=== PATIENT | female | born 1945 | race Caucasian/White ===

== ENCOUNTER → 2019-04-19 | Outpatient (CLI) | payer MEDICARE, BC ==
--- NOTE | 2019-04-19 12:54 | US ---
EXAMINATION TYPE: US carotid duplex BILAT DATE OF EXAM: 04/19/2019 COMPARISON: NONE CLINICAL HISTORY: I65.23 Occlusion and stenosis of bilateral carotid. EXAM MEASUREMENTS: RIGHT: Peak Systolic Velocity (PSV) cm/sec ----- Right CCA: 52.4 ----- Right ICA: 71.9 ----- Right ECA: 51.9 ICA/CCA ratio: 1.4 RIGHT: End Diastole cm/sec ----- Right CCA: 14.7 ----- Right ICA: 23.3 ----- Right ECA: 6.6 LEFT: Peak Systolic Velocity (PSV) cm/sec ----- Left CCA: 57.2 ----- Left ICA: 57.4 ----- Left ECA: 54.0 ICA/CCA ratio: 1.0 LEFT: End Diastole cm/sec ----- Left CCA: 15.4 ----- Left ICA: 22.1 ----- Left ECA: 7.2 VERTEBRALS (direction of flow): Right Vertebral: Antegrade Left Vertebral: Antegrade Rhythm: Normal No significant velocity elevations, mild plaque. IMPRESSION: Mild degree of grayscale atheromatous plaquing with no sonographically evident hemodynam ically significant stenosis within either visualized carotid arterial system. Criteria for Assigning % of Stenosis / Diameter reduction (Estimation based on the indirect measurements of the internal carotid artery velocities (ICA PSV). 1. Normal (no stenosis)=ICA PSV < 125 cm/s: ratio < 2.0: ICA EDV<40 cm/s. 2. Less than 50% stenosis=ICA PSV < 125 cm/s: ratio < 2.0: ICA EDV<40 cm/s. 3. 50 to 69% stenosis=ICA PSV of 125 to 230 cm/s: ration 2.0 ? 4.0: ICA EDV 40-100 cm/s. 4. Greater than 70% stenosis to near occlusion= ICA PSV > 230 cm/s: ratio > 4.0: ICA EDV > 100 cm/s. 5. Near occlusion= ICA PSV velocities may be low or undetectable: variable ratio and ICA EDV. 6. Total occlusion=unable to detect flow.
== END | disposition home or self-care (01) ==
LOC: RADUSWWP 12:08
PROVIDERS: ATTEND Family Medicine
DX: I65.23 Occlusion and stenosis of bilateral carotid arteries (principal)
CPT/HCPCS: 93880

== ENCOUNTER → 2019-06-11 | Outpatient (CLI) | payer MEDICARE, BC ==
--- NOTE | 2019-06-11 16:19 | US ---
EXAMINATION TYPE: US pelvic complete DATE OF EXAM: 06/11/2019 COMPARISON: NONE CLINICAL HISTORY: 73-year-old female R10.2 pelvic pain. Pain on physical exam only. No complaints of bleeding. TECHNIQUE: Transabdominal (TA). Transabdominal sonographic images of the pelvis were acquired. Date of LMP: Post menopausal FINDINGS: EXAM MEASUREMENTS: Uterus: 8.8 x 4.5 x 2.7 cm Endometrial Stripe: 1.3 cm Right Ovary: Not visualized Left Ovary: Not visualized 1. Uterus: Anteverted and wnl 2. Endometrium: Thickened 3. Right Ovary: Not seen 4. Left Ovary: Not seen 5. Bilateral Adnexa: wnl 6. Posterior cul-de-sac: wnl IMPRESSION: Endometrial stripe abnormally thickened at 1.3 cm for a postmenopausal female. Careful clinical corre lation for any postmenopausal bleeding is recommended. Differential considerations include endometria l hyperplasia, polyps, or endometrial carcinoma. Neither ovary could be visualized.
== END | disposition home or self-care (01) ==
LOC: RADUSWWP 14:37
PROVIDERS: ATTEND Obstetrics & Gynecology
DX: R93.89 Abnormal findings on diagnostic imaging of other specified body structures (principal); Z78.0 Asymptomatic menopausal state
CPT/HCPCS: 76856

== ENCOUNTER → 2019-07-05 | Outpatient (CLI) | payer MEDICARE, BC ==
[2019-07-05 11:39] LABS: Basophils # (A) 0.1 k/uL (0-0.2); Basophils % (A) 1 %; Eosinophils # (A) 0.1 k/uL (0-0.7); Eosinophils % (A) 2 %; HCT 43.1 % (34.0-46.0); HGB 14.4 gm/dL (11.4-16.0); Lymphocytes # (A) 1.7 k/uL (1.0-4.8); Lymphocytes % (A) 27 %; MCH 29.4 pg (25.0-35.0); MCHC 33.3 g/dL (31.0-37.0); MCV 88.2 fL (80.0-100.0); Mean Platelet Volume 5.6; Monocytes # (A) 0.4 k/uL (0-1.0); Monocytes % (A) 7 %; Neutrophils # (A) 3.8 k/uL (1.3-7.7); Neutrophils % (A) 62 %; Platelet Count 255 k/uL (150-450); RBC 4.89 m/uL (3.80-5.40); RDW 13.9 % (11.5-15.5); WBC 6.1 k/uL (3.8-10.6)
== END | disposition home or self-care (01) ==
LOC: LABPAT 10:19
PROVIDERS: ATTEND Obstetrics & Gynecology
DX: Z01.812 Encounter for preprocedural laboratory examination (principal); Z01.818 Encounter for other preprocedural examination
CPT/HCPCS: 36415; 85025; 93005

== ENCOUNTER 2019-07-12 06:26 | Day surgery (SDC) | payer MEDICARE, BC ==
[2019-07-09 10:10] VITALS: BMI 34.9
--- NOTE | 2019-07-11 20:28 | P.HPOB ---
History of Present Illness H&P Date: 07/11/19 Chief Complaint: Thickened endometrium This is a 73-year-old female 1 para 0 who presents for dilation and curettage secondary to endometrial thickening on ultrasound. Her pelvic ultrasound showed a uterus measuring 8.8 by or 0.5 x 2.7 cm with endometrial thickness of 1.3 cm. Neither ovary was seen. Her pelvic ultrasound was performed due to her history of breast cancer. She denied any vaginal bleeding. She only had pelvic pain when she was examined. In light of the thickened endometrium, the decision is made to proceed with dilation and curettage with hysteroscopy for direct visualization. Obstetrical history: . History of 1 ectopic . Gynecologic history: No history of sexual transmitted diseases. Social history: She is . She is retired. Review of Systems Constitutional: Reports weight loss, Denies chills, Denies fever Eyes: denies blurred vision, denies pain Ears: bilateral: decreased hearing Ears, nose, mouth and throat: Denies headache, Denies sore throat Cardiovascular: Denies chest pain, Denies shortness of breath Respiratory: Denies cough Gastrointestinal: Reports constipation Genitourinary: Reports urinary frequency, Denies abnormal vaginal bleeding, Denies dysuria, Denies hematuria Menstruation: Reports postmenopausal Musculoskeletal: Reports myalgias Neurological: Reports headaches Endocrine: Denies fatigue, Denies weight change Past Medical History Past Medical History: Cancer, Hearing Disorder / Deafness, Hyperlipidemia, Osteoarthritis (OA), Pneumonia Additional Past Medical History / Comment(s): lt breast ca-chemo 2000, varicose veins, environmental alleriges, constipation, tendonitis rt foot, glaucoma History of Any Multi-Drug Resistant Organisms: None Reported Past Surgical History: Breast Surgery, Joint Replacement, Orthopedic Surgery Additional Past Surgical History / Comment(s): colonoscopy, arabella mastectomy, left knee replacement,ectopic preg-fallopian tube remove,pin lt foot for maldonado fx, lt achilles tendon repaired, surgery on left knee after injury 1969's , arabella cataracts Past Anesthesia/Blood Transfusion Reactions: Previous Problems w/ Anesthesia, Motion Sickness, Postoperative Nausea & Vomiting (PONV) Additional Past Anesthesia/Blood Transfusion Reaction / Comment(s): heart rate went down during mastectomy surgery. no IV's or BP in left arm Past Psychological History: No Psychological Hx Reported Smoking Status: Former smoker Past Alcohol Use History: Occasional Past Drug Use History: None Reported - Past Family History Mother Additional Family Medical History / Comment(s): Alheimer's Father Additional Family Medical History / Comment(s): lung problems,alcoholism Sister(s) Family Medical History: Diabetes Mellitus, Hypertension Brother(s) Family Medical History: Cancer, Hypertension Additional Family Medical History / Comment(s): prostate ca,kidney ca,lung ca,colon ca Medications and Allergies Home Medications Medication Instructions Recorded Confirmed Type Atorvastatin Calcium [Lipitor] 20 mg PO HS 11/27/15 07/09/19 History Acetaminophen Tab [Tylenol Tab] 325 mg PO DIRECTED PRN 07/09/19 07/09/19 History Cannabidiol (Cbd) Extract 0 mg PO DIRECTED PRN 07/09/19 07/09/19 History [Epidiolex] Famotidine [Pepcid] 20 mg PO DAILY PRN 07/09/19 07/09/19 History Ibuprofen [Advil] 200 mg PO Q8HR PRN 07/09/19 07/09/19 History Travoprost [Travatan Z 0.004%] 1 drop BOTH EYES 199907/09/19 07/09/19 History Allergies Allergy/AdvReac Type Severity Reaction Status Date / Time erythromycin base Allergy Abdominal Verified 07/09/19 09:53 Pain Iodinated Contrast Media Allergy "had Verified 07/09/19 09:53 [Iodinated Contrast Media - biting IV Dye] feeling at the back of my neck" Iodine and Iodide Containing Allergy "had Verified 07/09/19 09:53 Produc biting feeling at the back of my neck" perfume Allergy Dyspnea Verified 07/09/19 09:53 candles Allergy Dyspnea Uncoded 07/09/19 09:53 Exam Osteopathic Statement: *. No significant issues noted on an osteopathic structural exam other than those noted in the History and Physical/Consult. HEENT: Within normal limits Heart: Regular rate and rhythm Lungs: Clear to auscultation bilaterally Abdomen: Soft, nontender Pelvic exam: Uterus is retroverted, mildly tender, with first-degree prolapse. There is also first-degree cystocele noted. Bilateral adnexa are tender. No adnexal masses are palpated. Extremities: Negative Homans Assessment and Plan (1) Endometrial thickening on ultrasound Status: Acute Code(s): R93.89 - ABNORMAL FINDINGS ON DX IMAGING OF OTH BODY STRUCTURES SNOMED Code(s): 903065708 Plan: Proceed with dilation and curettage with hysteroscopy. I have discussed the risks, benefits, and alternative therapies for the above- mentioned procedure and for both sedation/anesthesia as well as necessary blood products administration, if indicated, as they pertain to this patient. The patient has indicated her understanding and acceptance of the risks and procedures discussed.
[~2019-07-12 06:26] MED LIST: DEXAMETHASONE SOD PHOSPHATE 10 MG/ML 1 ML VIAL IV ONE; HYDROmorphone 0.5 MG/0.5 ML SYRINGE IVP PRN; LACTATED RINGERS 1,000 ML IV SCH; LIDOCAINE 1% 20 ML VIAL (10MG/ML) FOR IV START INTRADERMA PRN; ONDANSETRON 4 MG/2 ML VIAL IVP ONE; Pre Op ABX Message 1 EACH MISC MISCELLANE ONE
[2019-07-12] MEDS ORDERED: diphenhydrAMINE 50 MG/ML 1 ML VIAL ONE (07:26)
[2019-07-12] MEDS ORDERED: PROPOFOL 10 MG/ML 20 ML VIAL IV ONE (07:26)
[2019-07-12] MEDS ORDERED: LIDOCAINE 1% INJ 10MG/ML (20 ML MDV) ONE (07:26)
[2019-07-12] MEDS ORDERED: SUCCINYLCHOLINE CHLORIDE 100 MG/5 ML SYR IV ONE (07:26)
[2019-07-12] MEDS ORDERED: fentaNYL (PF) 50 MCG/ML 2 ML AMP ONE (07:26)
--- NOTE | 2019-07-12 07:57 | P.OP ---
Date of Procedure: 07/12/19 Preoperative Diagnosis: Endometrial thickening Postoperative Diagnosis: Endometrial polyp Procedure(s) Performed: Dilation and curettage with hysteroscopy Anesthesia: MICA Surgeon: Samantha Domínguez Estimated Blood Loss (ml): 5 Pathology: other (Endometrial curettings) Condition: stable Disposition: same day Indications for Procedure: This is a 73-year-old female 1 para 0 who presents for dilation and curettage secondary to endometrial thickening on ultrasound. Her pelvic ultrasound showed a uterus measuring 8.8 by or 0.5 x 2.7 cm with endometrial thickness of 1.3 cm. Neither ovary was seen. Her pelvic ultrasound was performed due to her history of breast cancer. She denied any vaginal bleeding. She only had pelvic pain when she was examined. In light of the thickened endometrium, the decision is made to proceed with dilation and curettage with hysteroscopy for direct visualization. Operative Findings: Upon hysteroscopy a large endometrial polyp is noted. Background endometrium is very atrophic. Uterus is sounded to 9 cm. There is grade 3 uterine prolapse noted. Description of Procedure: The patient is taken to the operating room where she is placed in the dorsal lithotomy position. She is prepped and draped in the normal sterile fashion. Her bladder is drained with a catheter and then removed. Examination is performed under anesthesia. Uterus is found to be prolapsed grade 3. Uterus is small, mid position with no adnexal masses palpated. A weighted speculum was placed in the patient's vagina and a right angle retractor was used to visualize the cervix. The anterior lip of the cervix is grasped with a single-tooth tenaculum. The cervix is gently dilated with a Salu dilator and then the uterus is sounded to 9 cm. Cervix gently dilated further until a hysteroscope could be passed. Hysteroscopy is performed using normal saline. The above noted findings are made and pictures are taken. Next the hysteroscope was withdrawn and a polyp forceps was introduced. A very large polyp is removed that was about 2 inches long and about a half an inch wide. Next a medium-size sharp curet was introduced and sharp curettage was performed until a gritty texture was noted. Minimal further tissue was obtained. The specimen was removed from the field. The single-tooth tenaculum was removed and no bleeding was noted. All other incisions are removed from the vagina. Minimal bleeding is noted. Specimen is sent to pathology labeled endometrial curettings. Patient is taken to recovery room in stable condition.
[2019-07-12 08:12] VITALS: TEMP 96.8
[2019-07-12 09:10] VITALS: RESP 16
[2019-07-12 09:15] VITALS: PULSE 69
[2019-07-12 09:27] VITALS: BP 149/87
== END 2019-07-12 09:54 | disposition home or self-care (01) ==
LOC: OR 06:26
PROVIDERS: ATTEND Obstetrics & Gynecology
DX: N84.0 Polyp of corpus uteri (principal); N81.3 Complete uterovaginal prolapse; J45.909 Unspecified asthma, uncomplicated; K21.9 Gastro-esophageal reflux disease without esophagitis; E78.5 Hyperlipidemia, unspecified; H91.90 Unspecified hearing loss, unspecified ear; M19.90 Unspecified osteoarthritis, unspecified site; I83.90 Asymptomatic varicose veins of unspecified lower extremity; Z88.1 Allergy status to other antibiotic agents; Z88.5 Allergy status to narcotic agent; Z91.041 Radiographic dye allergy status; Z87.891 Personal history of nicotine dependence; Z79.899 Other long term (current) drug therapy; Z90.13 Acquired absence of bilateral breasts and nipples; Z85.3 Personal history of malignant neoplasm of breast; Z87.01 Personal history of pneumonia (recurrent); Z92.21 Personal history of antineoplastic chemotherapy; Z96.652 Presence of left artificial knee joint; Z98.41 Cataract extraction status, right eye; Z98.42 Cataract extraction status, left eye; Z90.79 Acquired absence of other genital organ(s); Z91.09 Other allergy status, other than to drugs and biological substances; Z83.3 Family history of diabetes mellitus; Z82.49 Family history of ischemic heart disease and other diseases of the circulatory system; Z80.0 Family history of malignant neoplasm of digestive organs; Z80.2 Family history of malignant neoplasm of other respiratory and intrathoracic organs; Z80.51 Family history of malignant neoplasm of kidney; Z80.42 Family history of malignant neoplasm of prostate; Z81.1 Family history of alcohol abuse and dependence; Z81.8 Family history of other mental and behavioral disorders
CPT/HCPCS: 88305; 58558; J1200; J1100; J2405; J2001; J3010; J0330; J2704

== ENCOUNTER → 2021-04-30 | Outpatient (CLI) | payer MEDICARE, BC ==
--- NOTE | 2021-05-01 07:28 | MR ---
EXAMINATION TYPE: MR lumbar spine wo con DATE OF EXAM: 04/30/2021 COMPARISON: NONE HISTORY: LBP, radiates down right leg x 2 weeks, no trauma. Radiculopathy per order. TECHNIQUE: Multiplanar, multisequence imaging of the lumbar spine is performed without IV contrast. FINDINGS: There is slight levoconvex scoliotic curvature centered at L2-L3 level. Sagittal images of the lumbar spine show vertebral body heights to appear satisfactory. Multilevel disc desiccation is p resent . The disc Space heights fairly well maintained. The conus medullaris is normal in position an d signal ending superior L1 level. A few tiny Tarlov cyst at S2 level noted for reference sagittal im age 11. Small hemangioma at T11 vertebral body level. Mild multilevel anterior spurring. Axial images at T12-L1 level are within normal limits. Axial images at L1-L2 level mild facet arthropathy and broad disc bulge with mild effacement of the a nterior and posterior lateral thecal sac on axial image 25. Patent bilateral neural foramina. Axial images at L2-L3 level show moderate facet arthropathy and ligamentum flavum hypertrophy effacin g the posterior lateral thecal sac. There is 8 mm right-sided facet arthropathy synovial cyst on axia l image 20. There is [id number] broad disc bulge effacing the anterior thecal sac. There is mil d to moderate right-sided neural foraminal narrowing. Left-sided neural foramen is patent. Axial images at the L3-L4 level show mild/moderate facet arthropathy and ligamenta flava hypertrophy pitting posterolateral thecal sac. There is mild broad disc bulge effacing the anterior thecal sac. T here is mild bilateral neural foraminal narrowing. Axial images at L4-L5 level show mild/moderate facet arthropathy and ligamentum flavum hypertrophy pa cing posterior lateral thecal sac. There is mild broad-based posterior disc protrusion. There is mild right and moderate left-sided neural foraminal narrowing. Axial images at L5-S1 level show mild to moderate facet arthropathy bilaterally. Spinal canal is pres erved. Patent bilateral neural foramina. There are central simple appearing parapelvic cysts present in both kidneys. IMPRESSION: Multilevel degenerative changes greatest at L2-L3 through the L4-L5 levels as detailed ab teje.
== END | disposition home or self-care (01) ==
LOC: RADMRIMAIN 15:29
PROVIDERS: ATTEND Family Medicine
DX: M51.16 Intervertebral disc disorders with radiculopathy, lumbar region (principal); M47.27 Other spondylosis with radiculopathy, lumbosacral region; M99.73 Connective tissue and disc stenosis of intervertebral foramina of lumbar region
CPT/HCPCS: 72148

== ENCOUNTER 2022-08-27 10:00 | Day surgery (SDC) | payer BC, MEDICARE ==
[~2022-08-27 10:00] MED LIST changes: -DEXAMETHASONE SOD PHOSPHATE 10 MG/ML 1 ML VIAL IV ONE; -HYDROmorphone 0.5 MG/0.5 ML SYRINGE IVP PRN; +LIDOCAINE 1% (10MG/ML) FOR IV START INTRADERMA PRN; -LIDOCAINE 1% 20 ML VIAL (10MG/ML) FOR IV START INTRADERMA PRN; -ONDANSETRON 4 MG/2 ML VIAL IVP ONE; -Pre Op ABX Message 1 EACH MISC MISCELLANE ONE
[2022-08-27 11:45] VITALS: TEMP 97.2
[2022-08-27] MEDS ORDERED: PROPOFOL 10 MG/ML 20 ML VIAL IV ONE (12:36)
--- NOTE | 2022-08-27 12:51 | P.PCN ---
Date of Procedure: 08/27/22 Procedure(s) Performed: BRIEF HISTORY: Patient is a 77-year-old pleasant female scheduled for an elective colonoscopy as a part of evaluation of prior history of colon polyps. Her last colonoscopy was 5 years ago. PROCEDURE PERFORMED: Colonoscopy with snare polypectomy. PREOPERATIVE DIAGNOSIS: History of colon polyps. IV sedation per Anesthesia. PROCEDURE: After informed consent was obtained, the patient, was brought into the endoscopy unit. IV sedation was administered by Anesthesia under continuous monitoring. Digital rectal examination was normal. Initially the Olympus CF-160 flexible video colonoscope was then inserted in the rectum, gradually advanced into the cecum without any difficulty. Careful examination was performed as the scope was gradually being withdrawn. Ileocecal valve and the appendiceal orifice were visualized and appeared normal. Prep was excellent. Mucosa of the cecum, ascending colon, appeared normal. The hepatic flexure there was a 6 mm sessile polyp removed by snare polypectomy. Rest of the transverse colon, descending colon, sigmoid colon, and rectum appeared normal. Retroflexion was performed in the rectum and no lesions were seen. The patient tolerated the procedure well. IMPRESSION: 6 mm hepatic flexure polyp status post polypectomy Rest of the colon appeared normal RECOMMENDATIONS: Findings of this examination were discussed with the patient well as her family. She was advised to follow with the biopsy results. If the biopsy reveals adenoma she can have a repeat colonoscopy in 5 years..
[2022-08-27 12:58] VITALS: RESP 16
[2022-08-27 13:11] VITALS: BP 152/74; PULSE 0
== END 2022-08-27 13:34 | disposition home or self-care (01) ==
LOC: ORWHC2ENDO 10:00
PROVIDERS: ATTEND Internal Medicine Gastroenterology
DX: Z12.11 Encounter for screening for malignant neoplasm of colon (principal); D12.3 Benign neoplasm of transverse colon; E78.5 Hyperlipidemia, unspecified; K21.9 Gastro-esophageal reflux disease without esophagitis; F17.210 Nicotine dependence, cigarettes, uncomplicated; Z86.010 Personal history of colon polyps; Z79.899 Other long term (current) drug therapy
CPT/HCPCS: 88305; 45385; J2704

== ENCOUNTER → 2023-01-07 | Outpatient (CLI) | payer MEDICARE ==
--- NOTE | 2023-01-07 08:30 | US ---
EXAMINATION TYPE: US pelvic limited DATE OF EXAM: 01/07/2023 COMPARISON: NONE CLINICAL INDICATION: Female, 77 years old with history of R33.9 RETENTION OF URINE; always feels the pressure to urinate Prevoid bladder: 172.4ml Postvoid bladder: 16.9ml, wnl IMPRESSION: No abnormal post void residual.
== END | disposition home or self-care (01) ==
LOC: RADUSWWP 07:30
PROVIDERS: ATTEND Family Medicine
DX: R33.9 Retention of urine, unspecified (principal)
CPT/HCPCS: 76857

== ENCOUNTER → 2024-07-04 | Outpatient (CLI) | payer MEDICARE ==
--- NOTE | 2024-07-08 22:38 | BD ---
EXAMINATION TYPE: Axial Bone Density DATE OF EXAM: 07/04/2024 CLINICAL HISTORY: 78 years old Female. ICD-10 CODE: M85.80 Disorder of bone , Additional History: Height: 67.5 Weight: 225 FRAX RISK QUESTIONS: Family History (Parent hip fracture): no History of Fracture in Adulthood: yes Secondary Osteoporosis: no RISK FACTORS HISTORY OF: Surgery to Spine/Hip(right/left)/Wrist (right/left): no MEDICATIONS: Thyroid Medications: no Osteoporosis Medications: no EXAM MEASUREMENTS: Bone mineral densitometry was performed using the Simple [employer] System. Bone mineral density as measured about the Lumbar spine is: ----- L1-L4(G/cm2): 1.301 T Score Values are as follows: ----- L1: 0.4 ----- L2: 1.0 ----- L3: 2.4 ----- L4: 0.3 ----- L1-L4: 1.0 Z Score Values are as follows: ----- L1: 1.0 ----- L2: 1.6 ----- L3: 3.0 ----- L4: 0.9 ----- L1-L4: 1.6 Bone mineral density has: Decreased -4.0% since study of: 09/18/2014 Bone mineral density about the R hip (g/cm2): 0.887 Bone mineral density about the L hip (g/cm2): 0.942 T Score values are as follows: -----R Neck: -1.4 -----L Neck: -1.1 -----R Total: -1.0 -----L Total: -0.5 Z Score values are as follows: -----R Neck: -0.2 -----L Neck: 0.1 -----R Total: 0.0 -----L Total: 0.5 Bone mineral density has: Decreased -14.3% since study of: 09/18/2014 FRAX%s: The graph provided illustrates a 11.0% chance for a major osteoporotic fx and a 2.2% chance f or the hips probability for fx in 10 years time. IMPRESSION: Osteopenia (T Score between -2.5 and -1). There is slightly increased risk of fracture and the patient may be considered for treatment. Re-Screen 2-5 years. NOTE: T-SCORE=SD OF THE YOUNG ADULT MEAN. [facility], , 07/08/2024 10:36 PM
== END | disposition home or self-care (01) ==
LOC: RADBDWWP 08:27
PROVIDERS: ATTEND Family Medicine
DX: M85.89 Other specified disorders of bone density and structure, multiple sites (principal)
CPT/HCPCS: 77080